=== PATIENT | male | born 1950 | race Caucasian/White ===

== ENCOUNTER 2022-05-10 14:01 | Emergency (ER) | payer OTHER ==
[~2022-05-10] VITALS: Ht 170.2 cm; Wt 96.2 kg
[2022-05-10 14:20] VITALS: BP 146/74
--- NOTE | 2022-05-10 14:20 | NUR ---
72 y/o male, c/o left leg pain that increases with walking for 2 months. pt states pain starts from behind the knee. states he has gillespie. a&ox4, german speaking, ambulates with steady gait. pmh: dm2, hld, htn allergy: penicillin (hives) med: denies
[2022-05-10] MEDS ORDERED: IBUP-2213 PO (16:35)
[2022-05-10] MEDS: IBUPROFEN 600 MG TAB PO ONE (16:57)
[2022-05-10 17:02] VITALS: BP 146/74
--- NOTE | 2022-05-10 17:02 | NUR ---
Patient discharged with v/s stable. Written and verbal after care instructions given and explained. Patient alert, oriented and verbalized understanding of instructions. Ambulatory with steady gait. All questions addressed prior to discharge. ID band removed. Patient advised to follow up with PMD. Rx of ibuprofen (script) given. Patient educated on indication of medication including possible reaction and side effects. Opportunity to ask questions provided and answered. copy of work note, imaging given
== END 2022-05-10 17:02 | disposition home or self-care (01) ==
LOC: MED 14:01
DX: M25.562 Pain in left knee (principal); G89.29 Other chronic pain; M17.12 Unilateral primary osteoarthritis, left knee; E11.9 Type 2 diabetes mellitus without complications; I10 Essential (primary) hypertension; E78.5 Hyperlipidemia, unspecified; Z88.0 Allergy status to penicillin; Z79.899 Other long term (current) drug therapy
CPT/HCPCS: 73562; 99283

== ENCOUNTER 2022-09-30 09:24 | Emergency (ER) | payer OTHER, MEDICAID ==
[~2022-09-30] VITALS: Ht 164.3 cm; Wt 95.4 kg
[~2022-09-30 09:24] MED LIST: IBUP-2213 PO
[2022-09-30 09:28] VITALS: BP 159/118
--- NOTE | 2022-09-30 09:35 | NUR ---
PT AMB TO BED 3.
--- NOTE | 2022-09-30 09:42 | NUR ---
72 y/o Male BIB family for head pain s/p mechanical fall x 1 week ago. Pt denies LOC. AOX4, GCS15. Came in today as pain has not ceased. Denies vision changes now and since fall. Denies N/V/D/CP since fall as well. Able to ambulate with a steady gait. pmhx: HTN, HLD, DM(158) Allergies: PCN(mild rash)
--- NOTE | 2022-09-30 09:52 | NUR ---
Dr Blood at bedside to assess pt
--- NOTE | 2022-09-30 10:04 | NUR ---
Pt taken to CT in wheelchair
--- NOTE | 2022-09-30 10:20 | NUR ---
Pt returned from CT to bed 03
[2022-09-30] MEDS ORDERED: TRAM-748 PO (10:29)
[2022-09-30 10:45] VITALS: BP 147/89
== END 2022-09-30 10:45 | disposition home or self-care (01) ==
LOC: MED 09:24
DX: R51.9 Headache, unspecified (principal); E11.9 Type 2 diabetes mellitus without complications; Z79.1 Long term (current) use of non-steroidal anti-inflammatories (NSAID); I10 Essential (primary) hypertension; Z79.891 Long term (current) use of opiate analgesic; Z88.0 Allergy status to penicillin
CPT/HCPCS: 70450; 99284

== ENCOUNTER 2023-07-08 11:47 | Emergency (ER) | payer OTHER, MEDICAID ==
[~2023-07-08] VITALS: Ht 165.1 cm; Wt 96.6 kg
[~2023-07-08 11:47] MED LIST changes: +TRAM-748 PO
[2023-07-08 11:53] VITALS: BP 120/85; PULSE 87; RESP 19; TEMP 97.8; O2SAT 87
[2023-07-08 12:28] VITALS: O2SAT 93
[2023-07-08 12:32] LABS: BASOPHILS % (AUTO) 0.6 % (0.0-2.0); EOSINOPHILS % (AUTO) 0.1 % (0.0-4.0); HEMOGLOBIN 11.8 g/dL (12.0-18.0); LYMPHOCYTES # (AUTO) 1.1 K/uL (2.0-11.5); LYMPHOCYTES % (AUTO) 17.7 % (20.5-51.1); MEAN CORPUSCULAR HEMOGLOBIN 30 pg (27-31); MEAN CORPUSCULAR HGB CONC 33 g/dL (33-37); MONOCYTES # (AUTO) 0.7 K/uL (0.8-1.0); MONOCYTES % (AUTO) 11.3 % (1.7-9.3); NEUTROPHILS # (AUTO) 4.3 K/uL (1.8-7.7); NEUTROPHILS % (AUTO) 70.3 % (42.2-75.2); PLATELET COUNT (AUTO) 189 K/uL (140-450); RED CELL DISTRIBUTION WIDTH 15.5 % (11.6-13.7); WHITE BLOOD COUNT (AUTO) 6.1 K/uL (4.8-10.8)
[2023-07-08 12:50] LABS: LIPASE 48 U/L (16-77)
[2023-07-08 12:57] LABS: ALANINE AMINOTRANSFERASE 34 U/L (12-78); ALBUMIN 3.6 g/dL (3.4-5.0); ALKALINE PHOSPHATASE 94 U/L (50-136); ASPARTATE AMINOTRANSFERASE 19 U/L (15-37); CALCIUM 8.4 mg/dL (8.5-10.1); CARBON DIOXIDE 26.9 mmol/L (21-32); CHLORIDE 99 mmol/L (98-107); CREATININE 1.1 mg/dL (0.6-1.3); GLUCOSE 97 mg/dL (74-106); POTASSIUM 3.9 mmol/L (3.5-5.1); SODIUM SERUM 136 mmol/L (136-145); TOTAL BILIRUBIN 0.3 mg/dL (0.0-1.0); TOTAL PROTEIN, SERUM 7.4 g/dL (6.4-8.2); UREA NITROGEN, BLOOD 11 mg/dL (7-18)
[2023-07-08] MEDS ORDERED: BENZONATATE 100 MG CAPLF PO ONE (13:50)
[2023-07-08] MEDS ORDERED: methylPREDNISolone SS 125 MG/2 ML VIAL IVP ONE (13:50)
[2023-07-08] MEDS ORDERED: ALBUTEROL SULFATE/IPRATROPIU 3 ML SOL IH ONE (13:50)
[2023-07-08 14:09] LABS: FLU A ANTIGEN negative (NEGATIVE); FLU B ANTIGEN NEGATIVE (NEGATIVE)
[2023-07-08 15:55] VITALS: O2SAT 93
[2023-07-08] MEDS ORDERED: SERT-515 PO (16:19)
[2023-07-08] MEDS ORDERED: DOXA2TAB2 PO (16:19)
[2023-07-08] MEDS ORDERED: TRAM50TA4 PO (16:19)
[2023-07-08] MEDS ORDERED: METF1TAB5 PO (16:19)
[2023-07-08] MEDS ORDERED: LISI20TA29 PO (16:19)
[2023-07-08] MEDS ORDERED: IBUP-2213 PO (16:19)
[2023-07-08] MEDS ORDERED: TRAZ-466 PO (16:19)
[2023-07-08] MEDS ORDERED: ATOR40TA40 PO (16:19)
[2023-07-08 17:55] VITALS: O2SAT 97
[2023-07-08 22:26] VITALS: BP 99/63; PULSE 72; RESP 22; TEMP 98.1; O2SAT 97
== END 2023-07-08 22:26 | disposition home or self-care (01) ==
LOC: MED 11:47
DX: J44.9 Chronic obstructive pulmonary disease, unspecified (principal); Z20.822 Contact with and (suspected) exposure to COVID-19; J20.9 Acute bronchitis, unspecified; J96.91 Respiratory failure, unspecified with hypoxia; F17.200 Nicotine dependence, unspecified, uncomplicated; Z71.6 Tobacco abuse counseling; Z79.899 Other long term (current) drug therapy
CPT/HCPCS: 36415; 71045; 80053; 83690; 83880; 84484; 85025; 87426; 87804; 93005; 94640; 96374; 99291; J2930